=== PATIENT | female | born 1980 | race Caucasian/White ===

== ENCOUNTER 2023-02-26 08:13 | Emergency (ER) | payer MEDICAID ==
[~2023-02-26] VITALS: Ht 157.5 cm; Wt 87.0 kg
[2023-02-26 08:22] VITALS: BP 110/72
[2023-02-26 08:54] LABS: BASOPHILS % 0.5 % (0.0-2.0); HEMATOCRIT. 36.1 % (36.0-48.0); HEMOGLOBIN. 12.4 g/dL (12.0-16.0); LYMPHOCYTES % 17.2 % (20.0-50.0); MEAN CORPUSCULAR HEMOGLOBIN 29.7 pg (28.0-32.0); MEAN CORPUSCULAR VOLUME 86.4 fL (81.0-99.0); MEAN PLATELET VOLUME 9.1 fl (7.4-10.4); MONOCYTES % 6.7 % (2.0-8.0); NEUTROPHILS % 74.6 % (40.0-76.0); PLATELET 276 x1000/uL (130-400); RED BLOOD CELL COUNT 4.18 mill/uL (4.2-5.4); RED CELL DISTRIBUTION WIDTH 13.6 % (11.6-14.6)
[2023-02-26 09:07] LABS: CHLORIDE 108 mEq/L (98-107)
[2023-02-26 09:11] LABS: ETHANOL BLOOD < 10 mg/dL
== END 2023-02-26 10:56 | disposition left against medical advice (07) ==
LOC: ER 08:13
DX: R41.82 Altered mental status, unspecified (principal)
CPT/HCPCS: 36415; 80048; 80307; 80320; 80329; 85025; 99283; G0480